=== PATIENT | male | born 2000 | race Caucasian/White ===

== ENCOUNTER 2025-06-26 10:37 | Emergency (ER) | payer SELFPAY ==
[2025-06-26 10:48] VITALS: BP 119/66; PULSE 77; RESP 20; TEMP 37.1; O2SAT 99
--- NOTE | 2025-06-26 10:54 | ED_ITS ---
HPI - Headache General Chief Complaint: Headache Stated Complaint: headaches Time Seen by Provider: 06/26/25 11:10 Source: patient Mode of arrival: ambulatory Limitations: no limitations History of Present Illness HPI Narrative: 24-year-old male presents with concern for headache for 1 month. Reports headache is inconsistent. He reports that 1 month ago he fell and hit his head and had to get cindi in his scalp and a week after that he started having headaches. He reports the headaches are intermittent, he has been taking ibuprofen without relief. He reports some my sensitivity. He reports nausea without vomiting. Reports he had concussions in the past before this instance. He denies weakness in any extremity, difficulty swallowing, difficulty speaking MD elicited complaint: headache Related Data Allergies Allergy/AdvReac Type Severity Reaction Status Date / Time No Known Allergies Allergy Verified 06/26/25 10:54 Review of Systems Review of Systems: CONSTITUTIONAL: Denies malaise, chills, sweats, or fever. EYES: Reports occasional blurry vision ENT: Denies rhinorrhea, congestion GASTROINTESTINAL: Reports nausea. Denies vomiting SKIN: Laceration, abrasions, redness, swelling MUSCULOSKELETAL: Denies back pain, joint pain, or myalgia. NEUROLOGIC: Denies numbness, weakness. Reports headache. All systems reviewed & are unremarkable except as noted in HPI and below PMFSH Comments At time of signature, agree with nursing past medical, surgical, social and family history. There is no relevant family history pertinent to the presenting complaint Exam Narrative: GENERAL: Well-appearing, well-nourished, and in no acute distress. HEAD: Normocephalic, atraumatic. EYES: PERRLA, sclera clear, and EOMI. No nystagmus. ENT: Nares clear, no rhinorrhea or epistaxis. Mucous membranes moist. TM pearly pak with sharp light reflex bilaterally; no tragal tenderness. Oropharynx without erythema or lesions. Tonsils not enlarged and without exudate. NECK: Supple. CHEST: No respiratory distress. Speaks in full sentences. HEART: Regular rate and rhythm. No murmur heard. Normal peripheral pulses. EXTREMITIES: Normal range of motion. No edema. Normal strength and sensation. SKIN: Warm, dry, no visible rash. NEURO: Alert and oriented x3. No focal deficits. Cranial nerves II through XII grossly intact PSYCH: Normal mood and affect Course Course Emergency Course: Patient is aware of diagnosis, understands and agrees to treatment plan. Anticipatory guidance given. Patient agrees to follow-up as directed and is aware of reasons to seek care at the emergency department. Portions of this record may have been created with voice recognition software Level of Care: Express Care Visit Vital Signs Vital signs: Vital Signs Temperature 98.8 F 06/26/25 10:48 Pulse Rate 77 06/26/25 10:48 Respiratory Rate 20 06/26/25 10:48 Blood Pressure 119/66 06/26/25 10:48 Pulse Oximetry 99 06/26/25 10:48 Oxygen Delivery Room Air 06/26/25 10:48 Temperature 98.8 F 06/26/25 10:48 Pulse Rate 77 06/26/25 10:48 Respiratory Rate 20 06/26/25 10:48 Blood Pressure 119/66 06/26/25 10:48 Pulse Oximetry 99 06/26/25 10:48 Oxygen Delivery Room Air 06/26/25 10:48 Reviewed. MDM - Headache MDM Narrative Medical decision making narrative: I evaluated this patient in the [facility] care. History is obtained from patient who is an independent historian and physical exam was performed.? Available medical records were reviewed. ? Exam findings and relevant testing show no acute concerns or changes; patient is non-toxic appearing and is in no distress. ? Differential diagnosis and treatment plan were discussed with the patient. Patient agrees with discussion and after shared medical decision making agrees with plan of care. All questions were answered to the patient's satisfaction. Patient is appropriate for outpatient treatment and follow-up. Differential Diagnosis Differential diagnosis: Likely tension headache, subarachnoid hemorrhage, headache and postconcussion syndrome Critical Care Time Critical Care Time Critical Care Time: No Discharge Plan Discharge Clinical Impression: Headache Patient Disposition: Home Condition: Stable Instructions: Chronic Post Traumatic Headache (ED) Additional Instructions: 1) Please follow-up with your primary care doctor. 2) If you have any worsening of symptoms or any other urgent concerns please go to the ER. 3) Please take medications as prescribed. 4) Please read and follow information included in discharge instructions. Patient Language: Greenlandic Prescriptions: New sumatriptan succinate 25 mg tablet See Rx Instructions .ROUTE .COMPLEX Qty: 20 0RF Rx Instructions: take 1 tab at onset of headache; if no relief may repeat 1 tab after at least 2 hrs; max = 4 tabs/24 hr Follow-up/Referrals: Noreen Huynh MD [Physician, Family Practice] PHYSICIAN,RECRUITMENT ADVERTISING MANAGER [Primary Care Provider, Internal Medicine] Time of Disposition: 11:21
== END 2025-06-26 11:26 | disposition home or self-care (01) ==
PROVIDERS: Emergency Provider Nurse Practitioner
DX: R51.9 Headache, unspecified (principal)
CPT/HCPCS: 99213; G0463